=== PATIENT | female | born 1965 | race Caucasian/White ===

== ENCOUNTER → 2019-08-03 11:59 | Outpatient (CLI) | payer OTHER, SELFPAY | PROVIDERS: Visit Provider Physician Assistant | DX: R30.0 Dysuria (principal) | CPT/HCPCS: 87086 ==

== ENCOUNTER → 2023-08-28 16:39 | Outpatient (CLI) | payer OTHER, SELFPAY ==
--- NOTE | 2023-08-28 | DI.US.S_ITS ---
PROCEDURE: US PELVIC COMPLETE INDICATIONS: Postmenopausal bleeding TECHNIQUE: Real-time scanning was performed of the pelvic organs, with image documentation. Additional endovaginal scanning was necessary due to incomplete visualization of the adnexal and endometrial structures by transabdominal scanning. COMPARISON: [facility], , PELVIC COMPLETE, 05/23/2011, 16:27. FINDINGS: Uterus: Uterus is anteverted and normal in size at 9.9 x 5.6 x 4.7 cm. The myometrium is homogeneous. The endometrium measures 12 mm combined thickness. Ovaries: The right ovary measures 3.2 x 2.1 x 1.1 cm, with a calculated ovarian volume of 3.9 cc. The left ovary measures 2.6 x 1.7 x 1.7 cm, with a calculated ovarian volume of 3.9 cc. The ovaries have a normal sonographic appearance. Less than 12 follicles can be seen in each ovary. No adnexal masses are seen. Other: No pathologic free abdominal or pelvic fluid. IMPRESSION: Thickened endometrium to 12 mm in the setting of postmenopausal bleeding. Recommend gynecology evaluation for possible endometrial biopsy. Approved by: Jerry Goldstein M.D. on 08/29/2023 at 20:37
== END ==
LOC: US 16:40
PROVIDERS: Referring Provider Internal Medicine; Visit Provider Internal Medicine
DX: N95.0 Postmenopausal bleeding (principal); R93.89 Abnormal findings on diagnostic imaging of other specified body structures
CPT/HCPCS: 76830; 76856

== ENCOUNTER → 2023-09-07 17:13 | Outpatient (CLI) | payer OTHER, SELFPAY ==
--- NOTE | 2023-09-07 | DI.MG.S_ITS ---
BILATERAL DIGITAL SCREENING MAMMOGRAM 3D/2D WITH CAD: 09/07/2023 CLINICAL: Baseline exam. Routine screening. No prior exams were available for comparison. There are scattered areas of fibroglandular density in both breasts (category b / 25%-50% glandular tissue). Current study was also evaluated with a Computer Aided Detection (CAD) system. No significant masses, calcifications, or other findings are seen in either breast. IMPRESSION: NEGATIVE There is no mammographic evidence of malignancy. A 1 year screening mammogram is recommended. Based on the Tyrer Cuzick model (a risk assessment model) the patient's lifetime risk is 9.9% and her 10 year risk is 3.8%. According to the ACR, ACS, and NCCN guidelines, an annual breast MRI exam along with mammogram is recommended if the patient's lifetime risk is 20% or greater. This exam was interpreted at Station ID: [id number]. NOTE: For mammograms, a report in lay terms will be sent to the patient. Approximately 15% of breast malignancies will not be visualized mammographically. In the management of a palpable breast mass, a negative mammogram must not discourage biopsy of a clinically suspicious lesion. Electronically Signed By: Jerry rowan/compa:09/08/2023 08:39:41 letter sent: Normal Exam ACR BI-RADS Category 1: Negative 3341F
== END ==
LOC: MAMMO 17:14
PROVIDERS: PCP Internal Medicine; Referring Provider Internal Medicine; Visit Provider Internal Medicine
DX: Z12.31 Encounter for screening mammogram for malignant neoplasm of breast (principal); R92.323 Mammographic fibroglandular density, bilateral breasts
CPT/HCPCS: 77063; 77067

== ENCOUNTER → 2024-03-10 08:45 | Outpatient (CLI) | payer OTHER, SELFPAY ==
[2024-03-10 10:07] LABS: Alanine Aminotransferase 16 IU/L (<35); Aspartate Aminotransferase 20 IU/L (14-36)
== END ==
PROVIDERS: PCP Internal Medicine; Referring Provider Podiatrist Foot & Ankle Surgery; Visit Provider Podiatrist Foot & Ankle Surgery
DX: B35.1 Tinea unguium (principal)
CPT/HCPCS: 36415; 84450; 84460

== ENCOUNTER → 2025-04-26 15:12 | Outpatient (CLI) | payer OTHER, SELFPAY ==
--- NOTE | 2025-04-26 15:14 | DI.MG.S_ITS ---
MM screening mammo BI: 04/26/2025. BI-RADS: 1 CLINICAL: 59-year old female for bilateral screening mammogram. Tyrer-Cuzick lifetime risk of 12.1%. No personal or first-degree family history of breast cancer. History of ovarian cancer in two or more first-degree relatives. PRIOR EXAMS 09/07/2023. MAMMOGRAPHY TECHNIQUE: 2D and 3D (tomosynthesis) digital mammographic views obtained, with additional images as needed for full coverage. Current study was also evaluated with a Computer Aided Detection (CAD) system. DENSITY B. There are scattered areas of fibroglandular density. MAMMOGRAPHY FINDINGS Bilateral: No suspicious mass, asymmetry, microcalcification, or other abnormality seen. No significant change from comparison. IMPRESSION: * No evidence of malignancy. RECOMMENDATIONS Bilateral * Annual screening mammography. OVERALL ASSESSMENT CATEGORY BI-RADS-1: Negative. The [employer] recommends annual screening mammography beginning at age 40 for women with average risk of breast cancer. ELECTRONICALLY SIGNED: Jerry Goldstein M.D. on 04/27/2025 at 10:19:23 AM PT Interpreting Station ID: [id number]
== END ==
LOC: MAMMO 15:13
PROVIDERS: PCP Family Medicine; Referring Provider Family Medicine; Visit Provider Family Medicine
DX: Z12.31 Encounter for screening mammogram for malignant neoplasm of breast (principal); Z80.41 Family history of malignant neoplasm of ovary
CPT/HCPCS: 77063; 77067